=== PATIENT | male | born 1975 | race Caucasian/White ===

== ENCOUNTER 2024-11-25 11:32 | Outpatient (CLI) | payer BC, SELFPAY ==
[2024-11-25 12:07] LABS: Hemoglobin A1C 5.8 % (<5.7)
[2024-11-25 12:41] LABS: ALT 88 U/L (16-63); AST 54 U/L (15-37); Albumin 3.9 g/dL (3.4-5.0); Alkaline Phosphatase 94 U/L (46-116); BUN 14 mg/dL (7-18); Bilirubin, Total 0.4 mg/dL (0.2-1.0); CREATININE 0.9 mg/dL (0.70-1.30); Calcium 9.5 mg/dL (8.5-10.1); Calculated LDL 197 mg/dL (<100); Chloride 102 mmol/L (98-107); Cholesterol 287 mg/dL (<200); Glucose 98 mg/dL (74-106); HDL Cholesterol 46 mg/dL (>or=40); Potassium 4.4 mmol/L (3.5-5.1); Sodium 139 mmol/L (136-145); Triglyceride 221 mg/dL (<150)
== END 2024-11-25 11:33 | disposition home or self-care (01) ==
LOC: LBO 11:33
PROVIDERS: PCP Nurse Practitioner Family; Visit Provider Nurse Practitioner Family
DX: Z13.1 Encounter for screening for diabetes mellitus (principal); Z13.220 Encounter for screening for lipoid disorders; I10 Essential (primary) hypertension
CPT/HCPCS: 36415; 80053; 80061; 83036

== ENCOUNTER 2025-05-31 01:28 | Outpatient (CLI) | payer BC, SELFPAY ==
[2025-05-31] MEDS: Inhaler, Assist Device 1 EACH MC (17:28)
[2025-05-31] MEDS: Levalbuterol HFA 15 GM INH 4 PUFF IH (17:29)
--- NOTE | 2025-06-02 11:50 | W.PFT ---
Date of service: 05/31/25 Time of Service: 15:14 Pulmonary Function Test Result Indications: Cough Impression 1. Good patient effort was noted. ATS standards for reproducibility were met. 2. Normal spirometry. 3. Following the administration of a bronchodilator there was not a significant response 4. TLC was normal. No evidence of restrictive lung disease 5. DLCO was normal indicating normal alveolar gas exchange
== END 2025-05-31 01:29 | disposition home or self-care (01) ==
LOC: RT 01:28
PROVIDERS: PCP Nurse Practitioner Family; Visit Provider Nurse Practitioner Family
DX: R05.3 Chronic cough (principal)
CPT/HCPCS: 94060; 94726; 94729

== ENCOUNTER 2025-06-22 14:32 | Emergency (ER) | payer BC, SELFPAY ==
[2025-06-22 14:33] VITALS: BP 151/99; PULSE 62; RESP 16; TEMP 35.8; O2SAT 98
--- NOTE | 2025-06-22 14:45 | DI.RAD_ITS ---
Exam(s) XR SHOULDER RT COMPLETE 2+V EXAM: XR SHOULDER RT COMPLETE 2+V CLINICAL HISTORY: right shoulder pain. TECHNIQUE: 2D digital imaging was performed of the right shoulder. Four images were obtained. AP, Grashey, Y-view and axillary views were obtained. COMPARISON: No exams were available for comparison FINDINGS: BONES: No acute fracture is present. No bony destructive lesion is seen. JOINTS: No dislocation present. There are mild degenerative changes seen at the acromioclavicular joint. The glenohumeral joint appears well maintained. SOFT TISSUE: Normal. IMPRESSION: No acute abnormality. DATA REPOSITORY: RADIATION DOSE DELIVERED:
--- NOTE | 2025-06-22 15:51 | W.ED.GENAD ---
Discharge Plan Disposition Patient Disposition: Home Condition: Stable Discharge Details Clinical Impression: Injury of right shoulder Primary Care Provider: Nico Olmedo ED Provider: [place] Home Meds and New Rx's Prescriptions: New ibuprofen [Motrin IB] 200 mg capsule 200 mg PO Q6H PRNQty: 20 0RF Continued lisinopril 20 mg tablet 20 mg PO DAILY Qty: 90 3RF atorvastatin 10 mg tablet 10 mg PO DAILY Qty: 90 3RF Discharge Instructions Instructions: Shoulder Sprain (DC), Shoulder Pain (DC) Additional Instructions: I would recommend taking Motrin 600 mg every 8 hours with food, icing the affected area, apply Voltaren gel or Motrin gel topically per bottle instructions for application. It is safe to apply to your shoulder Take Tylenol for breakthrough pain Continue to range shoulder so it does not become stiff or frozen I will list orthopedics for you to follow-up in the outpatient setting Try to decrease heavy lifting or repetitive motion to your right arm Stand Alone Forms: Portal Information Referrals: Kevin Ann MD [ [facility] STAFF PHYSICIAN, Orthopaedic Surgical] HPI General Date/Time Provider Initiated Documentation: 06/22/25 14:39. HPI Narrative: This 49-year-old male with history of right shoulder injury snowboarding yesterday presents with an extension injury and difficulty with abduction and external rotation of shoulder. Denies any additional injuries, specifically denies any head or neck pain or loss of consciousness. Otherwise reportedly healthy and not anticoagulated. States the pain is pretty dramatic especially when he applies pressure to it. Related Data Home Medications ?Medication ?Instructions ?Recorded ?Confirmed atorvastatin 10 mg tablet 10 mg PO DAILY #90 tabs 12/14/24 06/22/25 lisinopril 20 mg tablet 20 mg PO DAILY #90 tabs 01/18/25 06/22/25 ibuprofen 200 mg capsule (Motrin 200 mg PO Q6H PRN #20 caps 06/22/25 IB) Previous Rx's ?Medication ?Instructions ?Recorded atorvastatin 10 mg tablet 10 mg PO DAILY #90 tabs 12/14/24 lisinopril 20 mg tablet 20 mg PO DAILY #90 tabs 01/18/25 ibuprofen 200 mg capsule (Motrin 200 mg PO Q6H PRN #20 caps 06/22/25 IB) Allergies Allergy/AdvReac Type Severity Reaction Status Date / Time No Known Allergies Allergy Verified 06/22/25 14:36 General Stated Complaint: Orthopedic JUSTO: 4 Exam Narrative Exam Narrative: Right shoulder with tenderness over the AC joint, decreased range of motion unable to abduct external rotation neurovascularly intact no tenderness to elbow, cervical spine, or scapula, no respiratory distress no flank tenderness no obvious bruising or deformity Course Vital Signs Vital signs: Vital Signs Temperature 35.8 C L 06/22/25 14:33 Pulse 62 06/22/25 14:33 Respiratory Rate 16 06/22/25 14:33 Blood Pressure 151/99 H 06/22/25 14:33 Pulse Oximetry 98 06/22/25 14:33 Temperature 35.8 C L 06/22/25 14:33 Pulse 62 06/22/25 14:33 Respiratory Rate 16 06/22/25 14:33 Blood Pressure 151/99 H 06/22/25 14:33 Pulse Oximetry 98 06/22/25 14:33 Pain Level 2 06/22/25 14:33 Medical Decision Making Results: X-ray of right shoulder per radiology interpretation my review does not show acute abnormality Patient with likely internal derangement to right shoulder, no sling indicated, greater risk than benefit. Encouraged to take Motrin 400 mg every 8 hours with food and Tylenol for breakthrough pain. Given a single dose of oxycodone for tonight, risk of addiction reviewed. He will also apply Voltaren gel topically. Referral to orthopedics has been placed should he have persistent diminished range of motion. No other visible evidence of trauma. Return precautions reviewed and patient expressed understanding declined work note PFSH All Active Problems (Updated 06/22/25 @ 15:38 by PAULA Bustos) Injury of right shoulder (Acute) Lung nodules (Acute) Chronic cough (Acute) Started long before MATTHEW inhibitor. Hyperlipidemia (Acute) Healthcare maintenance (Acute) Left rotator cuff tear (Acute ~2014) High cholesterol (Chronic) Medical History (Updated 06/22/25 @ 15:38 by PAULA Bustos) Family history of melanoma Lipoma proximal and distal right arm Cholelithiasis Surgical History (Updated 10/27/24 @ 16:30 by Audrey Sierra) S/P excision of lipoma (~2012) S/P cholecystectomy (~2012) @[facility] S/P appendectomy (~1998) @[facility] Family History (Updated 10/19/24 @ 11:37 by Bere Patricia RN) Father Adopted Hypertension Daughter Depression Maternal Grandmother Dementia Social History (Updated 11/29/24 @ 12:39 by Dipti Jackson) Smoking/Tobacco Use Status: Current every day Tobacco Type: cigarettes Tobacco: How many years used: 30 Quit status: not considering quitting Second Hand Exposure: No Smoking risk assessment performed?: Yes Alcohol Intake: current Alcohol Intake frequency: 3 or more drinks per day Alcohol type: beer, wine and hard liquor Previous attempts at quittin Details: 5-6 drinks on typical day Drug use: Occasionally Substance use type: marijuana Adopted: No Caregiver/Support person: No Household members: none Housing: apartment Number of Children: 1 number of grandchildren: 0 Communication Needs: None Education Level: high school Details: Diploma Do you need help understanding health information?: Never current occupation: interviewing clerk Sexually active: Yes Current gender identity: male What is your relationship status?: How often do you talk on the phone with friends or family?: three or more times per week How often do you get together with friends or relatives?: once per week How often do you attend hoahaoism or christianity services?: decline to answer Do you belong to any clubs or organized social groups?: no Panel score (0-1 are the most socially isolated patients): 1 NHANES result reviewed/action taken: Yes What type of physical activity do you participate in: other Details: snowboarding Frequency: 1-2 times per week Charity/Restoration: Non oriental orthodox Special charity needs: No Seatbelt use: sometimes Helmet use: Yes Helmet use: always Drive intox or ride w/intox 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
[2025-06-22] MEDS: oxyCODONE 5 MG TAB PO (15:52)
== END 2025-06-22 15:53 | disposition home or self-care (01) ==
PROVIDERS: Emergency Provider Physician Assistant; PCP Nurse Practitioner Family
DX: S43.401A Unspecified sprain of right shoulder joint, initial encounter (principal); Y93.23 Activity, snow (alpine) (downhill) skiing, snowboarding, sledding, tobogganing and snow tubing
CPT/HCPCS: 99283; 73030

== ENCOUNTER 2025-07-19 13:51 | Outpatient (REF) | payer BC, SELFPAY ==
[2025-07-19 14:14] LABS: Abs Immature Grans 0.05 10^3/uL (0.0-0.06); HCT 44.8 % (40.0-50.0); HGB 14.5 g/dL (13.5-17.5); Immature Grans % 0.8 %; MCH 29.7 pg (27.0-33.0); MCHC 32.4 % (32.0-36.0); MCV 92 fL (80-95); MPV 9.4 fL (8.0-11.0); Platelet Count 224 10^3/uL (130-400); RBC 4.88 10^6/uL (4.36-5.78); RDW 13.6 % (11.8-14.1); RDW-SD 46.4 fL; WBC 6.09 10^3/uL (4.4-10.8)
[2025-07-19 14:35] LABS: ALT 49 U/L (10-49); AST 35 U/L (<34); Albumin 4.7 g/dL (3.2-5.0); Alkaline Phosphatase 82 U/L (46-116); Anion Gap 6.5 mmol/L (3-11); BUN 15 mg/dL (9-23); Bilirubin, Total 0.5 mg/dL (0.2-1.2); CO2 28.5 mmol/L (20.0-31.0); Calcium 9.5 mg/dL (8.3-10.6); Chloride 106 mmol/L (98-107); Glucose 91 mg/dL (74-106); Potassium 4.4 mmol/L (3.5-5.1); Sodium 141 mmol/L (136-145); Total Protein 7.7 g/dL (5.7-8.2)
== END 2025-07-19 13:52 | disposition home or self-care (01) ==
LOC: LBN 13:51
PROVIDERS: PCP Nurse Practitioner Family; Visit Provider Internal Medicine Pulmonary Disease
DX: R05.3 Chronic cough (principal); R91.8 Other nonspecific abnormal finding of lung field
CPT/HCPCS: 80053; 85025

== ENCOUNTER 2025-07-19 14:04 | Outpatient (CLI) | payer BC, SELFPAY ==
--- NOTE | 2025-07-19 14:00 | RT.EKG_ITS ---
APPROVED REPORT Exam: Resting ECG Reason for Exam: concern for sarcoidosis Patient Location: O HR:72 bpm ECG Measurements Heart Rate 72 AXIS CA 193 P 19 QRSd 95 QRS 41 QT 388 T 33 QTc 425 Conclusion Sinus arrhythmia...V-rate 65- 76, variation>10% Ventricular premature complex...V complex w/ short R-R interval Normal Electrocardiogram
== END 2025-07-19 14:05 | disposition home or self-care (01) ==
LOC: CARDOPNVT 14:04
PROVIDERS: PCP Nurse Practitioner Family; Visit Provider Internal Medicine Pulmonary Disease
DX: R59.0 Localized enlarged lymph nodes (principal); R05.3 Chronic cough; R91.8 Other nonspecific abnormal finding of lung field
CPT/HCPCS: 93005; 93010